=== PATIENT | male | born 1990 | race Two or more races ===

== ENCOUNTER 2025-01-30 21:01 | Emergency (ER) | payer MEDICAID ==
[~2025-01-30] VITALS: Ht 170.2 cm; Wt 65.0 kg
[2025-01-30 21:11] VITALS: BP 138/92; PULSE 63; RESP 18; TEMP 98; O2SAT 100
== END 2025-01-30 22:36 | disposition left against medical advice (07) ==
LOC: EMS 21:01
DX: M54.50 Low back pain, unspecified (principal); Z53.21 Procedure and treatment not carried out due to patient leaving prior to being seen by health care provider